=== PATIENT | female | born 1995 | race Caucasian/White ===

== ENCOUNTER → 2022-10-16 09:00 | Outpatient (BNVA) | payer MEDICAID, SELFPAY | PROVIDERS: Visit Provider Obstetrics & Gynecology | DX: Z00.00 Encounter for general adult medical examination without abnormal findings (principal); Z34.90 Encounter for supervision of normal pregnancy, unspecified, unspecified trimester | CPT/HCPCS: 81025; 84315; 87077; 87086; 87184 ==

== ENCOUNTER → 2022-10-30 15:20 | Outpatient (BNVA) | payer MEDICAID, SELFPAY | PROVIDERS: Visit Provider Nurse Practitioner Women's Health | DX: Z34.90 Encounter for supervision of normal pregnancy, unspecified, unspecified trimester (principal) | CPT/HCPCS: 84315; 85025; 87086 ==

== ENCOUNTER → 2022-11-14 14:30 | Outpatient (BNVA) | payer MEDICAID, SELFPAY | PROVIDERS: Visit Provider Obstetrics & Gynecology | DX: Z34.90 Encounter for supervision of normal pregnancy, unspecified, unspecified trimester (principal) | CPT/HCPCS: 80307; 84315; 84443; 86762; 86803; 86850; 86900; 87081; 87086; 87340; 87806 ==

== ENCOUNTER 2022-12-05 11:18 | Inpatient (IN) | payer MEDICAID, SELFPAY ==
[2022-12-05] VITALS (44 sets, daily range): BP systolic 80–116; BP diastolic 44–75; PULSE 53–93; RESP 15–16; TEMP 36–36.2; O2SAT 91–99; BMI 32.2
[2022-12-05] MEDS: lactated ringers 1,000 ML 999 ML IV (11:58)
[2022-12-05] MEDS: ceFAZolin 2,000 MG in sodium chloride 0.9% (plus) 50 ML 100 MG IV (11:59)
[2022-12-05] MEDS: citric acid-sodium citrate 30 mL UDC PO (12:00)
[2022-12-05] MEDS: famotidine 20 mg/2 mL INJ IVP (12:00)
[2022-12-05] MEDS: metoclopramide 5 mg/mL SDV 2 mL 10 MG IVP (12:00)
--- NOTE | 2022-12-05 12:25 | W.PM.OPSUD ---
Surgery/Procedure H&P Update DATE OF PROCEDURE: December 05, 2022 DATE H&P PERFORMED: 11/14/22 H&P UPDATE INFORMATION: I have reviewed H&P completed within last 30 days, I have examined patient prior to procedure and No changes to prior documentation PRIMARY INDICATION FOR PROCEDURE: previous , desires repeat iup @ 39 weeks, 2 days PLANNED PROCEDURE: Operation Date: 12/05/22 12:00 Proposed Procedures p Repeat section 19256,O34.219(Not Applicable) - Jovana Pretty MD Related Problem List Diagnoses (1) GBS (group B Streptococcus carrier), +RV culture, currently : (2) History of delivery: (3) Supervision of normal , antepartum: (4) Insufficient care:
[2022-12-05 12:32] LABS: Basophils % 0.2 %; Eosinophils # 0.1 10^3/uL (0.0-0.8); Eosinophils % 0.4 %; Hematocrit 34.5 % (37.0-47.0); Hemoglobin 11.2 g/dL (11.5-15.3); Lymphocytes # 2.3 10^3/uL (0.8-4.8); Lymphocytes % 16.5 %; Mean Corpuscular HGB Conc 32.5 g/dL (30.0-36.0); Mean Corpuscular Hemoglobin 30.1 pg (28.0-34.0); Mean Corpuscular Volume 92.7 fl (81-99); Mean Platelet Volume 10.4 fL (7.4-10.4); Monocytes # 0.8 10^3/uL (0.2-0.9); Monocytes % 5.8 %; Neutrophils # 10.72 10^3/uL (1.8-7.7); Nucleated Red Blood Cells % 0 %; Platelet Count 338 10^3/cmm (130-400); Red Blood Count 3.72 10^6/uL (4.1-5.3); Red Cell Distribution Width 12.7 % (12.1-15.1); White Blood Count 14.1 10^3/uL (4.0-10.0)
--- NOTE | 2022-12-05 13:54 | PM.OP ---
Operative Report Date of procedure: December 05, 2022 Pre-op diagnosis: previous , desires repeat Post-op diagnosis: same-delivered Post-op findings: normal appearing uterus, tubes and ovaries Procedure done: repeat Specimens removed/disposition: none Surgeon: Jovana Pretty Anesthesia: Other (spinal) Estimated blood loss (mL): 150 IV fluids (mL): 800 Urine output (mL): 250 Procedure: The patient was taken to the operating room where spinal anesthesia was administered and found to be adequate. She was prepped and draped in the normal sterile fashion in the dorsal supine position with a leftward tilt. A Pfannenstiel skin incision was made and carried down to the underlying layer of fascia. The fascia was nicked in the midline and extended laterally with the Mai scissors. The fascia was then tented up and the rectus muscles dissected off sharply. The rectus muscles were and the peritoneum entered bluntly with the digit. The peritoneal incision was extended superiorly and inferiorly with good visualization of the bladder. The Arian O retractor was placed. It was clear of any bowel or omentum. The bladder flap was created sharply with the Metzenbaum scissors. A low transverse uterine incision was made and carried down to the bag of water. The bag of water was ruptured and the uterine incision extended cephalocaudad. The breech was grasped and brought through the incision, followed by the body. The body was rotated to the right and then left, to deliver the shoulders, the head followed. The nose and mouth were bulb suctioned. The baby was allowed to rest, while being dried, for 1 minute and then the cord was clamped and cut. The baby was handed to the waiting bowling alley operator. The placenta was delivered by expression. The uterus was exteriorized and cleared of all clots and debris. The uterine incision was closed with 0 Vicryl in a running fashion. A second imbricating layer of 3-0 Monocryl was used to close the uterus. The bladder flap was closed with 3-0 Monocryl. There was excellent hemostasis. The Arian O retractor was removed. The uterus was returned to the abdomen. The peritoneum was closed with 3-0 Monocryl, incorporating the rectus muscle. The fascia was closed with 0 Vicryl in 2 separate sutures overlapping in the midline. The skin was closed with absorbable beckie. Apgars on baby 8 at 1 minute and 8 at 5 minutes. weight 6 pounds 11 ounces. Mother and baby were stable post delivery.
[2022-12-05] MEDS: oxytocin 30 UNIT/500 ML BAG 60 UNIT IV (17:11)
[2022-12-05] MEDS: miSOPROStol 200 mcg Tablet 800 MCG PR (17:12)
[2022-12-05] MEDS: docusate sodium 100 mg Capsule PO (20:36)
[2022-12-05] MEDS: ketorolac 30 mg/mL INJ IVP (20:36)
[2022-12-06] VITALS (41 sets, daily range): BP systolic 90–111; BP diastolic 48–71; PULSE 59–100; RESP 16–24; TEMP 36.2–37.4; O2SAT 97–100
[2022-12-06] MEDS: sodium chloride 0.9% 500 ML 999 ML IV (00:31)
[2022-12-06 02:44] LABS: Hematocrit 21.3 % (37.0-47.0); Hemoglobin 6.8 g/dL (11.5-15.3); Mean Corpuscular HGB Conc 31.9 g/dL (30.0-36.0); Mean Corpuscular Hemoglobin 30.5 pg (28.0-34.0); Mean Corpuscular Volume 95.5 fl (81-99); Mean Platelet Volume 10.3 fL (7.4-10.4); Platelet Count 229 10^3/cmm (130-400); Red Blood Count 2.23 10^6/uL (4.1-5.3); Red Cell Distribution Width 12.9 % (12.1-15.1); White Blood Count 14.8 10^3/uL (4.0-10.0)
[2022-12-06] MEDS: lactated ringers 1,000 ML 999 ML IV (04:16)
--- NOTE | 2022-12-06 06:15 | PM.OBGYPN ---
IT OPERATIONS ANALYST Subjective Subjective: Interval history: S/p repeat section, patient denies headaches blurred vision or abdominal pain. She is tolerating fluids and regular diet. Report from nursing staff? hemorrhage of approximately 1400 mils. Was treated with TXA as well as Pitocin IV. Currently waiting on 2 units packed red blood cell transfusion. Labor: Amniotic Membrane Status: Intact Monitor Mode: External Contraction Pattern: Rare Status: Category I Vitals/I&O/Wt Last Vital Signs Temp 97.5 F L 12/06/22 03:08 Pulse 73 12/06/22 05:44 Resp 16 12/05/22 14:25 BP 94/55 12/06/22 05:44 Pulse Ox 99 12/05/22 15:53 O2 Del Method 12/05/22 14:25 12/05/22 12/05/22 12/06/22 14:59 22:59 06:59 Intake Total 800 / 800 500 / 1300 Output Total 650 / 650 250 / 900 235 / 1135 Balance 150 / 150 -250 / -100 265 / 165 Weight last 48 hrs Weight 74.843 kg Physical Exam Back/Pelvis: OTHER: Abdomen?soft, fundus firm Extremity: COMMON NORMALS: no calf tenderness and no pedal edema Urinary Catheter Management: [place]: Cath Placed During This Visit: yes Reason for Continuing Indwelling Catheter: Acute Urinary Retention or Obstruction Urinary Catheter Date of Insertion: 12/05/22 Urinary Catheter Time of Insertion: 12:50 Data 12/06/22 02:30 A&P Assessment and plan (1) Insufficient care: (2) History of delivery: Plan A. 1. S/p repeat 2. hemorrhage (hemoglobin 6.8)-asymptomatic P. Transfused 2 units packed red blood cells then repeat CBC. Attestations Medical Necessity Statement*: care after repeat Coding Level of Care Code Acute Code for Chg Fwd Diagnoses Insufficient care O09.30 History of delivery Z98.891
[2022-12-06] MEDS: lactated ringers 1,000 ML 125 ML IV (07:24)
[2022-12-06] MEDS: sodium chloride 0.9% 100 mL Bag 50 ML IV (08:28)
[2022-12-06] MEDS: ferrous sulfate EC 325 mg Tablet PO (11:41)
[2022-12-06] MEDS: prenatal vitamin Capsule 1 CAP PO (11:41)
[2022-12-06] MEDS: docusate sodium 100 mg Capsule PO (11:41)
[2022-12-06 18:27] LABS: Basophils % 0.2 %; Eosinophils # 0.1 10^3/uL (0.0-0.8); Eosinophils % 0.5 %; Hematocrit 24.9 % (37.0-47.0); Hemoglobin 8.2 g/dL (11.5-15.3); Lymphocytes # 1.3 10^3/uL (0.8-4.8); Lymphocytes % 6.8 %; Mean Corpuscular HGB Conc 32.9 g/dL (30.0-36.0); Mean Corpuscular Hemoglobin 29.7 pg (28.0-34.0); Mean Corpuscular Volume 90.2 fl (81-99); Monocytes # 1.3 10^3/uL (0.2-0.9); Monocytes % 6.8 %; Neutrophils # 15.46 10^3/uL (1.8-7.7); Neutrophils % 84.6 %; Nucleated Red Blood Cells % 0 %; Platelet Count 193 10^3/cmm (130-400); Red Blood Count 2.76 10^6/uL (4.1-5.3); Red Cell Distribution Width 14.9 % (12.1-15.1); White Blood Count 18.3 10^3/uL (4.0-10.0)
--- NOTE | 2022-12-06 20:27 | PM.OBGYPN ---
MANUFACTURING SALES REPRESENTATIVE Subjective Subjective: Interval history: Pt doing well, no complaints. s/P 2U PRBC transfusion for PPH. Pt denies dizziness,SOB, CP or HAs. Hgb 8.2. Labor: Amniotic Membrane Status: Intact Monitor Mode: External Contraction Pattern: Rare Status: Category I Vitals/I&O/Wt Last Vital Signs Temp 98.4 F 12/06/22 16:10 Pulse 100 12/06/22 16:10 Resp 24 H 12/06/22 16:10 BP 111/71 12/06/22 16:10 Pulse Ox 97 12/06/22 16:10 O2 Del Method 12/06/22 16:10 12/06/22 12/06/22 12/06/22 06:59 14:59 22:59 Intake Total 610 / 1410 500 / 500 500 / 1000 Output Total 535 / 1435 1000 / 1000 800 / 1800 Balance 75 / -25 -500 / -500 -300 / -800 Weight last 48 hrs Weight 74.843 kg Physical Exam Urinary Catheter Management: [place]: Cath Placed During This Visit: yes, but has since been removed by the nurse Reason for Continuing Indwelling Catheter: Accurate Measurement of Urinary Output in Critically Ill Patients Urinary Catheter Date of Insertion: 12/05/22 Urinary Catheter Time of Insertion: 12:50 Date Urinary Catheter Removed: 12/06/22 Time Urinary Catheter Discontinued: 01:45 Latex Free: Cath Placed During This Visit: yes Reason for Continuing Indwelling Catheter: Acute Urinary Retention or Obstruction Urinary Catheter Date of Insertion: 12/06/22 Urinary Catheter Time of Insertion: 02:00 Data 12/06/22 17:45 A&P Assessment and plan (1) Supervision of normal , antepartum: Plan S/P Repeat C/S and Tubal Sterilization PPH S/P transfusion 2U PRBCs Asymptomatic Anemia P. Probable DC tomorrow. Attestations Medical Necessity Statement*: S/P repeat C/S and Tubal Coding Level of Care Code Acute Code for Chg Fwd Diagnoses Supervision of normal , antepartum Z34.90
[2022-12-07 03:30] VITALS: BP 97/63; PULSE 73; RESP 18; TEMP 36.7; O2SAT 97
[2022-12-07] MEDS: prenatal vitamin Capsule 1 CAP PO (09:13)
[2022-12-07] MEDS: ferrous sulfate EC 325 mg Tablet PO (09:13)
[2022-12-07] MEDS: ibuprofen 800 mg tablet PO ×2 (09:13→15:13)
[2022-12-07] MEDS: docusate sodium 100 mg Capsule PO (09:13)
[2022-12-07 10:26] VITALS: BP 100/63; PULSE 77; RESP 20; TEMP 36.7; O2SAT 97
--- NOTE | 2022-12-07 12:15 | PM.OBGYDC ---
Discharge Providers CARTON STENCILER Date of Admission: 12/05/22 11:18 Date of Discharge: 12/07/22 Attending Provider at Admission: Jovana Pretty MD Attending Provider at Discharge: Jovana Pretty MD Primary CARTON STENCILER: Jovana Pretty Diagnoses at Discharge Discharge Diagnosis (1) Supervision of normal , antepartum: Details from hospital stay: 27-year-old female s/p repeat with hemorrhage treated with Pitocin, TXA and 2 units packed red blood cells. Patient's post op hemoglobin of 6.8 has resolved to 8.2. Patient denies headaches, blurred vision, chest pain, shortness of breath. She ambulates without assistance and without complaints. She states her bleeding is light with no passage of clots. Discharge to home expectations has been reviewed in great detail to include no heavy lifting, pushing or pulling. Patient is to shower daily keeping incision clean and dry. If heavy vaginal bleeding occurs to where patient thinks it is excessive she is to come to the emergency room for evaluation. She is to continue her vitamins and iron which she has at home. She is to call the clinic and schedule a 2-week follow-up appointment for postop evaluation. Status: Acute Reason for Visit Reason for Visit: induction Hospital Course Hospital Course See above details from hospital stay Information Peripartum Data: Delivery Method: Additional Peripartum Information: hemorrhage with treatment of Pitocin, TXA, transfusion of 2 units packed red blood cells. Physical Exam Back/Pelvis: OTHER: Abdomen?soft, fundus firm. Fundus is to the right of the umbilicus, nontender. Incision intact clean and dry. Lochia?light Extremity: COMMON NORMALS: normal to inspection, no calf tenderness and no pedal edema Urinary Catheter Management: [place]: Cath Placed During This Visit: yes, but has since been removed by the nurse Reason for Continuing Indwelling Catheter: Accurate Measurement of Urinary Output in Critically Ill Patients Urinary Catheter Date of Insertion: 12/05/22 Urinary Catheter Time of Insertion: 12:50 Date Urinary Catheter Removed: 12/06/22 Time Urinary Catheter Discontinued: 01:45 Latex Free: Cath Placed During This Visit: yes, but has since been removed by the nurse Reason for Continuing Indwelling Catheter: Decision to DC Catheter Urinary Catheter Date of Insertion: 12/06/22 Urinary Catheter Time of Insertion: 02:00 Date Urinary Catheter Removed: 12/06/22 Time Urinary Catheter Discontinued: 21:00 History History History 4 Term 2 0 Miscarriages/Ectopic 1 Living Children 2 Discharge Data Studies Completed and Pending Laboratory Results WBC 18.3 10^3/uL (4.0-10.0) H 12/06/22 17:45 RBC 2.76 10^6/uL (4.1-5.3) L 12/06/22 17:45 Hgb 8.2 g/dL (11.5-15.3) L 12/06/22 17:45 Hct 24.9 % (37.0-47.0) L 12/06/22 17:45 MCV 90.2 fl (81-99) D 12/06/22 17:45 MCH 29.7 pg (28.0-34.0) 12/06/22 17:45 MCHC 32.9 g/dL (30.0-36.0) 12/06/22 17:45 RDW 14.9 % (12.1-15.1) 12/06/22 17:45 Plt Count 193 10^3/cmm (130-400) 12/06/22 17:45 MPV 10.0 fL (7.4-10.4) 12/06/22 17:45 Neut % (Auto) 84.6 % 12/06/22 17:45 Lymph % (Auto) 6.8 % 12/06/22 17:45 [place] % (Auto) 6.8 % 12/06/22 17:45 Eos % (Auto) 0.5 % 12/06/22 17:45 Baso % (Auto) 0.2 % 12/06/22 17:45 Neut # (Auto) 15.46 10^3/uL (1.8-7.7) H 12/06/22 17:45 Lymph # (Auto) 1.3 10^3/uL (0.8-4.8) 12/06/22 17:45 [place] # (Auto) 1.3 10^3/uL (0.2-0.9) H 12/06/22 17:45 Eos # (Auto) 0.1 10^3/uL (0.0-0.8) 12/06/22 17:45 Baso # (Auto) 0.0 10^3/uL (0.0-0.1) 12/06/22 17:45 Nucleated RBC % (auto) 0 % 12/06/22 17:45 Nucleated RBCs # 0.0 /100WBC 12/06/22 17:45 Blood Type A Positive 12/05/22 11:30 Rho(D) Type Positive 12/05/22 11:30 Antibody Screen Negative 12/05/22 11:30 Crossmatch See Detail 12/05/22 11:30 Procedures Performed Repeat Transfusion with 2 units packed red blood cells Vitals Last Vital Signs Temp 98.1 F 12/07/22 10:26 Pulse 77 12/07/22 10:26 Resp 20 H 12/07/22 10:26 BP 100/63 12/07/22 10:26 Pulse Ox 97 12/07/22 10:26 O2 Del Method 12/07/22 10:26 Discharge Plan Discharge Patient Disposition: Home Condition: Stable Prescriptions: Continued prenat.vits,joanne,[id number] Tablet 1 tab PO DAILY (DME) breast pump Device See Rx Instructions .Route Qty: 1 0RF Rx Instructions: As directed Discharge Orders: Discharge Order (Routine); Ordered 12/07/22 Ordered By: Eufemia Stevens Referrals: Jovana Pretty MD [Physician] - 12/12/22 2:15 pm (1 week post-: 12/12/22 @2:15 6 week post-: 01/15/23 @10:00) Patient Instructions: Depression (DC), Bleeding (DC), Preeclampsia and Eclampsia After Delivery (GEN), OB C, OB Discharge Report, OB Anesthesia Instructions, OB Food/Drug Interaction Guide, Opioid Safety, OB Home Care Assessment: 1. S/p repeat 2. S/p hemorrhage 3. Asymptomatic anemia from acute blood loss 4. S/p transfusion with 2 units packed red blood cells Plan of Treatment: 1. Discharged home today 2. Follow-up in [address] visit [address] Dr[address] Pretty. Discharge Attestations CARTON STENCILER Time Spent in Discharge Care*: less than 30 min Coding Level of Care Code Acute Code for Chg Fwd Diagnoses Supervision of normal , antepartum Z34.90
[2022-12-07 20:00] VITALS: BP 114/74; PULSE 86; RESP 15; TEMP 36.6; O2SAT 97
== END 2022-12-07 20:43 | disposition home or self-care (01) | DRG 787 ==
PROVIDERS: Admitting Provider Obstetrics & Gynecology; Visit Provider Obstetrics & Gynecology
PROC: 10D00Z1 Extraction of Products of Conception, Low, Open Approach (ICD-10-PCS; CPT 59514; principal; 2022-12-05 12:00)
DX: O34.219 Maternal care for unspecified type scar from previous cesarean delivery (principal); D62 Acute posthemorrhagic anemia; O72.1 Other immediate postpartum hemorrhage; O90.81 Anemia of the puerperium; O99.824 Streptococcus B carrier state complicating childbirth; Z37.0 Single live birth; Z3A.39 39 weeks gestation of pregnancy
CPT/HCPCS: 12345; 36415; 36430; 51702; 59025; 59409; 85025; 85027; 86850; 86900; 86920; 96374; J0690; J1885; J2274; J2405; J2590; J2765; J3490; J7040; J7120; P9040

== ENCOUNTER 2024-03-19 07:00 | Emergency (ER) | payer MEDICAID, SELFPAY ==
[2024-03-19 07:09] VITALS: BP 107/77; PULSE 76; RESP 18; TEMP 36.4; O2SAT 98
--- NOTE | 2024-03-19 07:11 | ED_ITS ---
HPI - Eye Problem General: Chief complaint: Eye Problems Stated complaint: Eye swelling Time Seen by Provider: 03/19/24 07:02 Source: patient Mode of arrival: ambulatory Limitations: no limitations History of Present Illness: 48-year-old female who states she had no some swelling to her left eye started last night. She denies any pain denies any change in vision. She denies any injuries. Associated symptoms: Denies fever(s), headache(s), nausea, neck pain or vomiting Review of Systems Const: Denies: fever(s), chills, body aches or change in appetite Eyes: Denies: blurry vision or eye discomfort ENMT: Denies: throat pain or dental pain Card: Denies: chest pain Resp: Denies: dyspnea GI: Denies: abdominal pain, nausea, vomiting or diarrhea Musc: Denies: neck pain or back pain Skin/Breast: Denies: rash Neuro: Denies: headache(s) PFSH ED PFSH: Medical History Generalized anxiety disorder Major depressive disorder, recurrent severe without psychotic features Psychiatric care Insufficient care GBS (group B Streptococcus carrier), +RV culture, currently Supervision of normal , antepartum Surgical History History of x2 History of cholecystectomy Family History Denies family history of Colon cancer Ovarian cancer Diabetes Heart disease Hypercholesteremia Breast cancer Hypertension Uterine cancer Thyroid disease Stroke Physical Exam Const: COMMON NORMALS: no acute distress, patient oriented x3 and healthy appearing HENMT: COMMON NORMALS: normocephalic and atraumatic HEAD & SCALP: normocephalic and atraumatic Eye: OTHER: Chemosis noted to sclera of the left eye no erythema no drainage Neck/C-Spine: COMMON NORMALS: full ROM and supple Chest: COMMONS NORMALS: normal inspection of the chest Resp: COMMON NORMALS: normal respiratory effort Extremity: COMMON NORMALS: normal to inspection and full ROM Neuro: COMMON NORMALS: patient oriented x3, moves all extremities and no focal motor deficits Psych: COMMON NORMALS: mental status grossly normal, Normal thought process present and cooperative THOUGHT PROCESS: Normal thought process present Skin: COMMON NORMALS: no rashes or lesions noted and no wounds GENERAL SKIN EXAM: no rashes or lesions noted MDM - Eye Problem Medical Decision Making Patient presents here with chemosis noted to the sclera of left eye eye exam here is benign no abrasions no ulcer she is to do [id number] antihistamine eyedrops and cool compresses Medical Records I reviewed the patient's medical records. No radiology studies performed this visit Discharge Plan Discharge Patient Disposition: Home Clinical Impression: Chemosis of conjunctiva Qualifiers: Laterality: left Qualified Code(s): H11.422 - Conjunctival edema, left eye Condition: Stable Prescriptions: No Action fluoxetine [Prozac] 20 mg capsule 20 mg PO DAILY Qty: 30 0RF fluoxetine [Prozac] 40 mg capsule 40 mg PO DAILY Qty: 30 2RF Rx Instructions: Start after 1 month on 20 mg. trazodone 50 mg tablet 100 mg PO .HS PRN (Reason: insomnia) Qty: 60 2RF Discharge Orders: Discharge ED (Routine); Ordered 03/19/24 Ordered By: Christel Maldonado Discharge Diet: Advance as tolerated Discharge Activity: Resume usual activity Activity Restrictions/Additional Instructions: Exam here is consistent with chemosis of the left eye and swelling of the eye or surface membranes because of accumulation of fluid. Soft and related to an allergic response you use [id number] antihistamine eyedrops and cool cloth cold compress placed over the eye follow-up with your PCP return if worsening Coding Level of Care Code ED Behavioral Services Tech for Elli Perez
[2024-03-19] MEDS: tetracaine 0.5% Op Soln 4 mL Btl 1 DROP EYE-LEFT (07:13)
[2024-03-19] MEDS: fluorescein 1 mg Strip EYE-LEFT (07:13)
[2024-03-19 07:15] VITALS: BP 107/77; PULSE 75; RESP 16; O2SAT 97
[2024-03-19 07:24] VITALS: BP 107/77; PULSE 68; O2SAT 94
== END 2024-03-19 07:26 | disposition home or self-care (01) ==
PROVIDERS: Emergency Provider Emergency Medicine
DX: H11.422 Conjunctival edema, left eye (principal)
CPT/HCPCS: 99283

== ENCOUNTER 2025-05-07 09:12 | Emergency (ER) | payer MEDICAID, SELFPAY ==
[2025-05-07 09:17] VITALS: BP 113/70; PULSE 79; RESP 14; TEMP 36.6; O2SAT 97; BMI 27.9
--- NOTE | 2025-05-07 09:21 | W.ED.UPPEXIN ---
HPI - Extremity Injury (Upper) General: Chief Complaint: Allergic Reaction Stated Complaint: hives(2xweeks) Time Seen by Provider: 05/07/25 09:13 Source: patient Mode of arrival: ambulatory Limitations: no limitations History of Present Illness: 29-year-old female who states that she has been having urticaria off and on for the last 2 weeks. States is to her trunk and legs and has been very pruritic. She denies any breathing issues. States she has not come to contact anything that she knows she is allergic to. Associated symptoms: Denies neck pain Related Data Previous Rx's ?Medication ?Instructions ?Recorded bupropion HCl 150 mg 24 hr tablet, 150 mg PO QAM #30 tabs 11/25/24 extended release (Wellbutrin XL) trazodone 50 mg tablet 100 mg (2 x 50 mg) PO .HS PRN 11/25/24 insomnia #60 tabs prednisone 50 mg tablet 50 mg PO DAILY #5 tabs 05/07/25 Allergies Allergy/AdvReac Type Severity Reaction Status Date / Time No Known Allergies Allergy Verified 11/25/24 10:45 Review of Systems Const: Denies: fever(s), chills, body aches or change in appetite Eyes: Denies: blurry vision or eye discomfort Card: Denies: chest pain Resp: Denies: dyspnea GI: Denies: abdominal pain, nausea, vomiting or diarrhea Musc: Denies: neck pain or back pain Skin/Breast: Reports: rash Neuro: Denies: headache(s) PFSH ED PFSH: Medical History Generalized anxiety disorder Psychiatric care Insufficient care GBS (group B Streptococcus carrier), +RV culture, currently Supervision of normal , antepartum Surgical History History of x2 History of cholecystectomy Family History Denies family history of Colon cancer Ovarian cancer Diabetes Heart disease Hypercholesteremia Breast cancer Hypertension Uterine cancer Thyroid disease Stroke Physical Exam Const: COMMON NORMALS: no acute distress, patient oriented x3 and healthy appearing HENMT: COMMON NORMALS: normocephalic and atraumatic HEAD & SCALP: normocephalic and atraumatic Eye: COMMON NORMALS: conjunctivae normal CONJUNCTIVA: Yes conjunctivae normal Neck/C-Spine: COMMON NORMALS: full ROM and supple Chest: COMMONS NORMALS: normal inspection of the chest Resp: COMMON NORMALS: normal respiratory effort, No retractions, No use of accessory muscles and clear to auscultation bilaterally AUSCULTATION: clear to auscultation bilaterally Cardio: COMMON NORMALS: regular rate RATE: regular rate Neuro: COMMON NORMALS: patient oriented x3, moves all extremities and no focal motor deficits Psych: COMMON NORMALS: mental status grossly normal, Normal thought process present and cooperative THOUGHT PROCESS: Normal thought process present Skin: COMMON NORMALS: no wounds NARRATIVE SKIN EXAM: Urticaria noted to trunk and legs Course Vital Signs: Vital signs: Vital Signs Temperature 97.9 F 05/07/25 09:17 Pulse Rate 79 05/07/25 09:17 Respiratory Rate 14 05/07/25 09:17 Blood Pressure 113/70 05/07/25 09:17 Pulse Oximetry 97 05/07/25 09:17 MDM - Extremity Injury (Upper) Medical Decision Making Patient presents with urticaria she is well-appearing here we will place her on prednisone she is follow-up PCP return if worsening. Medical Records I reviewed the patient's medical records. No radiology studies performed this visit Discharge Plan Discharge Patient Disposition: Home Clinical Impression: Urticaria Condition: Stable Prescriptions: New prednisone 50 mg tablet 50 mg PO DAILY Qty: 5 0RF No Action bupropion HCl [Wellbutrin XL] 150 mg tablet extended release 24 hr 150 mg PO QAM Qty: 30 2RF trazodone 50 mg tablet 100 mg PO .HS PRN (Reason: insomnia) Qty: 60 2RF Discharge Orders: Discharge ED (Routine); Ordered 05/07/25 Ordered By: Christel Maldonado Discharge Diet: Advance as tolerated Discharge Activity: Resume usual activity Patient Instructions: Urticaria (ED) Print Language: Sami Coding Level of Care Code ED Documentation Billing Clerk for Elli Perez
[2025-05-07 10:13] VITALS: BP 110/70; PULSE 80; RESP 17; O2SAT 99
== END 2025-05-07 10:00 | disposition home or self-care (01) ==
PROVIDERS: Emergency Provider Emergency Medicine; PCP Family Medicine
DX: L50.9 Urticaria, unspecified (principal)
CPT/HCPCS: 96372; 99284; J1100; J7512; J9999

== ENCOUNTER → 2025-08-08 09:41 | Outpatient (BNVA) | payer MEDICAID, SELFPAY | PROVIDERS: PCP Family Medicine; Visit Provider Registered Nurse Neonatal Intensive Care | DX: J02.9 Acute pharyngitis, unspecified (principal) | CPT/HCPCS: 87880 ==

== ENCOUNTER 2025-10-21 19:09 | Emergency (ER) | payer MEDICAID, SELFPAY ==
[2025-10-21 19:15] VITALS: BP 119/82; PULSE 80; RESP 14; TEMP 36.8; O2SAT 99; BMI 3655.6
[2025-10-21 19:36] LABS: Hematocrit 37.7 % (36-47); Hemoglobin 12.30 g/dL (11.27-16.99); Mean Corpuscular HGB Conc 32.6 g/dL (30-55); Mean Corpuscular Hemoglobin 30.3 pg (27-33); Mean Corpuscular Volume 92.9 fl (85-98); Nucleated Red Blood Cells % 0 %; Platelet Count 274 10^3/cmm (157-399); Red Blood Count 4.06 10^6/uL (3.85-5.65); White Blood Count 6.41 10^3/uL (3.29-11.43)
[2025-10-21 19:40] LABS: Glucose Urine UA Negative (Normal); Nitrate Urine Negative (Negative); Specific Gravity, Urine 1.020 (1.005-1.030)
[2025-10-21 19:43] LABS: Add Urine Microscopic? YES
[2025-10-21 20:29] LABS: Alanine Aminotransferase 16 U/L (0-33); Albumin Level 4.6 g/dL (3.5-5.2); Anion Gap 17.7 (5-19); Aspartate Amino Transferase 23 U/L (0-32); Blood Urea Nitrogen 13 mg/dL (6-20); Calcium 9.1 mg/dL (8.5-10.5); Carbon Dioxide 23 mmol/L (22-29); Chloride 100 mmol/L (98-107); Globulin 3.3 g/dL (1.3-4.6); Glucose 99 mg/dL (65-115); Osmolality Calculated 284 mOsm/kg (285-295); Potassium 3.7 mmol/L (3.5-5.1); Sodium 137 mmol/L (136-145); Total Protein 7.9 g/dL (6.6-8.7)
[2025-10-21 20:51] LABS: Alkaline Phosphatase 110 U/L (35-105)
--- NOTE | 2025-10-21 21:29 | ED_ITS ---
Documented by User: [email or web address] Harris 10/21/25 23:02 HPI - Back Pain/Injury 2 General: Chief Complaint: Back Pain/Injury Stated Complaint: RT lower back hurting,said might be kidney Time Seen by Provider: 10/21/25 21:29 Source: patient Mode of arrival: ambulatory Limitations: no limitations History of Present Illness: Mild pain patient is a 30-year-old female with no pertinent past medical history reporting the emergency department complaining of right low back pain that began about an hour prehospital. She states that she was getting ready to get to the shower when the pain started, and got so intense that it took her to her knees. States that the pain is worse with deep breathing and has been constant but overall has improved since it came on. She noted earlier it would intermittently get worse with sharp/stabbing sensations but now is more of a dull ache. She currently states that she is on her menstrual cycle but has not recently had any hematuria. She also is not indicating that she is having any dysuria. No fevers or chills, no nausea/vomiting. Overall condition has improved, she denies need for pain medication at this time. Vitals are stable. She is not clinically ill-appearing. MD elicited complaint: back pain Onset (ago): hour(s) Timing: constant and improved Quality: sharp, dull and stabbing Location: right lower back Associated symptoms: Deny abdominal pain, chills, dysuria, fever(s), nausea, urinary urgency or vomiting Related Data Previous Rx's ?Medication ?Instructions ?Recorded amoxicillin 875 mg tablet 875 mg PO BID 10 days #20 ta bs 08/08/25 Allergies Allergy/AdvReac Type Severity Reaction Status Date / Time No Known Allergies Allergy Verified 10/21/25 19:17 Review of Systems 2 General: Reports: 10 or more systems reviewed and unremarkable except in HPI and below Const: Denies: fever(s), chills, change in appetite, change in weight or diaphoresis ENMT: Denies: throat pain or hoarseness Card: Denies: chest pain, palpitations or lightheadedness Resp: Denies: dyspnea, productive cough or wheezing GI: Denies: abdominal pain, nausea, vomiting, diarrhea, constipation, bloating, change in stool character or hematochezia : Denies: flank pain, difficulty voiding, dysuria, urinary frequency or urinary urgency Musc: Reports: back pain; Denies: neck pain Skin/Breast: Denies: rash or new lesions Neuro: Denies: headache(s) or dizziness PFSH ED 2 PFSH: Medical History Generalized anxiety disorder Psychiatric care Insufficient care GBS (group B Streptococcus carrier), +RV culture, currently Supervision of normal , antepartum Surgical History History of x2 History of cholecystectomy Family History Denies family history of Colon cancer Ovarian cancer Diabetes Heart disease Hypercholesteremia Breast cancer Hypertension Uterine cancer Thyroid disease Stroke Social History Smoking and tobacco/nicotine status: never used tobacco/nicotine Physical Exam 2 Const: COMMON NORMALS: no acute distress, average body habitus, patient oriented x3, no limitations, healthy appearing, alert and well nourished G ENERAL APPEARANCE: cooperative and comfortable ORIENTATION/CONSCIOUSNESS: Yes awake OTHER: Nontoxic Neck/C-Spine: COMMON NORMALS: full ROM, supple and no meningeal signs Resp: COMMON NORMALS: normal respiratory effort, No retractions, No use of accessory muscles and clear to auscultation bilaterally AUSCULTATION: clear to auscultation bilaterally, no crackles, no rales, no rhonchi and no wheezes Cardio: COMMON NORMALS: regular rate, regular rhythm, No gallops present (Cardio), No clicks present (Cardio), No murmurs present (Cardio) and No rub (Cardio) RATE: regular rate RHYTHM: regular rhythm GI: COMMON NORMALS: Normal to inspection, nondistended, normoactive bowel sounds present, Soft to palpation, non-tender and no masses AUSCULTATION: Yes normoactive bowel sounds PALPATION: Yes Soft to palpation and No Guarding due to palpation present (GI) Back/Pelvis: OTHER: Easy reproducible tenderness palpation to the right parathoracic muscles, no flank bruising Extremity: COMMON NORMALS: normal to inspection and full ROM Neuro: COMMON NORMALS: patient oriented x3, moves all extremities, no focal motor deficits and no sensory deficits noted SENSORIUM/ORIENTATION: Yes alert MENINGEAL SIGNS: Yes no meningeal signs Psych: COMMON NORMALS: mental status grossly normal, cooperative and speech normal SPEECH: Yes normal speech Skin: COMMON NORMALS: no rashes or lesions noted GENERAL SKIN EXAM: no rashes or lesions noted Course 2 Vital Signs: Vital signs: Vital Signs Temperature 98.2 F 10/21/25 19:15 Pulse Rate 91 10/21/25 22:01 Respiratory Rate 14 10/21/25 19:15 Blood Pressure 99/73 10/21/25 22:01 Pulse Oximetry 99 10/21/25 22:01 Oxygen Delivery Me thod Room Air 10/21/25 22:01 MDM - Back Pain/Injury Medical Decision Making Patient presented for evaluation of sudden onset right low back pain, she had endorsed concern that this was kidney related. However she denied to me any history of kidney pathology such as pyelonephritis or kidney stones. She is currently on her menstrual cycle, this is why her urinalysis has blood in it but there are no infectious markers. On exam she has tenderness to palpation to the right parathoracic muscles but this is easily reproducible to palpation, making it less likely that this is truly CVA/kidney related pain. She is also nontoxic-appearing, no symptoms of fevers or chills at home, no dysuria or frequency/hesitancy with urination, and no nausea or vomiting. She did not report any recent trauma. Her lab work is all unremarkable, and her CT abdomen and pelvis showing no acute findings. Due to the reproducibility of this pain and lack of lab or imaging findings this patient is likely dealing with musculoskeletal back pain. Other potential etiology would be possible shingles preceding her rash however this is very unlikely given the patient's age. She is told to follow-up with her primary care provider for reevaluation in a few days if she continues to have pain, and to return the emergency department with any onset of other new concerning symptoms. Patient endorses understanding and agrees to this plan at this time. Symptoms have been stable throughout ED course. Labs 10/21/25 19:30 10/21/25 19:30 Radiology Impressions Abdomen/Pelvis CT 10/21/25 21:55 IMPRESSION: 1. Circumferential bladder wall thickening, which can be due to underdistention, however cystitis may have similar appearance. 2. Status post cholecystectomy. 3. No hydronephrosis or obstructing calculi bilaterally. Laboratory Results WBC 6.41 10^3/uL (3.29-11.43) 10/21/25 19: RBC 4.06 10^6/uL (3.85-5.65) 10/21/25 19: Hgb 12.30 g/dL (11.27-16.99) 10/21/25 19: Hct 37.7 % (36-47) 10/21/25 19: MCV 92.9 fl (85-98) 10/21/25 19: MCH 30.3 pg (27-33) 10/21/25: MCHC 32.6 g/dL (30-55) 10/21/25 19: RDW 13.0 % (12.1-15.1) 10/21/25 19: Plt Count 274 10^3/cmm (157-399) 10/21/25: MPV 9.6 fL (7.4-10.4) 10/21/25 19: Neut % (Auto) 47.4 % 10/21/25 19: Lymph % (Auto) 41.3 % 10/21/25 19: [place] % (Auto) 8.9 % 10/21/25 19: Eos % (Auto) 1.7 % 10/21/25 19: Baso % (Auto) 0.5 % 10/21/25: Neut # (Auto) 3.04 10^3/uL (1.8-7.7) 10/21/25: Lymph # (Auto) 2.7 10^3/uL (0.8-4.8) 10/21/25: [place] # (Auto) 0.6 10^3/uL (0.2-0.9) 10/21/25: Eos # (Auto) 0.1 10^3/uL (0.0-0.8) 10/21/25 19: Baso # (Auto) 0.0 10^3/uL (0.0-0.1) 10/21/25: Nucleated RBC % (auto) 0 % 10/21/25: Nucleated RBCs # 0.0 /100WBC 10/21/25 19:30 Sodium 137 mmol/L (136-145) 10/21/25 19: Potassium 3.7 mmol/L (3.5-5.1) 10/21/25 19: Chloride 100 mmol/L (98-107) 10/21/25 19: Carbon Dioxide 23 mmol/L (22-29) 10/21/25 19: Anion Gap 17.7 (5-19) 10/21/25 19: BUN 13 mg/dL (6-20) 10/21/25 19: Creatinine 0.8 mg/dL (0.5-0.9) 10/21/25 19: GFR Calculation 85.4 mL/min (90-130) L 10/21/25 19: Glucose 99 mg/dL (65-115) 10/21/25 19: Calculated Osmolality 284 mOsm/kg (285-295) L 10/21/25 19: Calcium 9.1 mg/dL (8.5-10.5) 10/21/25: Total Bilirubin 0.4 mg/dL (0.15-1.2) 10/21/25 19: AST 23 U/L (0-32) 10/21/25 19: ALT 16 U/L (0-33) 10/21/25 19: Alkaline Phosphatase 110 U/L (35-105) H 10/21/25 19: Total Protein 7.9 g/dL (6.6-8.7) 10/21/25: Albumin 4.6 g/dL (3.5-5.2) 10/21/25 19: Globulin 3.3 g/dL (1.3-4.6) 10/21/25 19: Urine Color [place] (Yellow) A 10/21/25: Urine Appearance Cloudy (CLEAR) A 10/21/25: Urine pH 5.5 (5-7) 10/21/25: Ur Specific [place] 1.020 (1.005-1.030) 10/21/25: Urine Protein Trace (Negative) A 10/21/25: Urine Glucose (UA) Negative (Normal) 10/21/25: Urine Ketones Trace (Negative) 10/21/25 19:28 Urine Blood 3+ (Negative) A 10/21/25 19:28 Urine Nitrate Negative (Negative) 10/21/25 19:28 Urine Bilirubin Negative (Negative) 10/21/25 19:28 Urine Urobilinogen 1.0 mg/dL (Negative) 10/21/25 19:28 Ur Leukocyte Esterase Trace (Negative) A 10/21/25 19:28 Urine RBC >100 /hpf (0-2) H 10/21/25 19:28 Urine WBC 0-5 /hpf (0-5) 10/21/25 19:28 Ur Squamous Epith Cells 0-5 /hpf (0-5) 10/21/25 19:28 Amorphous Sediment Not Reportable 10/21/25 19:28 Urine Bacteria None seen /hpf (NONE) 10/21/25 19:28 Hyaline Casts 0-4 /lpf H 10/21/25 19:28 All radiology interpretation(s) finalized by discharge Discharge Plan Discharge Patient Disposition: Home Clinical Impression: Musculoskeletal back pain Condition: Stable Prescriptions: No Action amoxicillin 875 mg tablet 875 mg PO BID 10 Days Qty: 20 0RF Discharge Orders: Discharge ED (Routine); Ordered 10/21/25 Ordered By: Volodymyr Ray Referrals: Barron Germain MD [Primary Care Provider, Family Practice] Patient Instructions: Patient Portal & Daniela Instructions Activity Restrictions/Additional Instructions: Discharge Instructions: Musculoskeletal Back Pain Your Diagnosis You were evaluated in the emergency department for back pain. After a thorough evaluation including CT scan and laboratory tests, we have determined that you have musculoskeletal back pain. Your kidney stone was ruled out, and all your tests were reassuring. Your vital signs have been stable throughout your visit. What to Expect The good news is that most people with musculoskeletal back pain improve significantly within the first month, regardless of treatment. You should expect gradual improvement over the coming weeks. Home Care Instructions Activity: - Stay active and continue your normal daily activities as much as you can tolerate - Avoid prolonged bed rest, as this can actually slow your recovery - Gradually increase your activity level as your pain improves Pain Management: Non-medication options (try these first): - Apply heat to your back for 20 minutes several times daily using a heating pad or warm compress - Consider massage therapy if available and affordable - Gentle stretching as tolerated Medication options: - Take [id number] anti-inflammatory medications (such as ibuprofen or naproxen) as directed on the package, unless you have been told to avoid these medications - You may take acetaminophen (Tylenol) in addition to anti-inflammatory medications if needed for additional pain relief - Take medications with food to reduce stomach upset When to Seek Immediate Medical Attention Return to the emergency department or call 911 if you develop any of the following: - New loss of bladder or bowel control - Numbness in the groin or rectal area (saddle anesthesia) - New or worsening weakness in your legs - Fever (temperature above 100.4?F or 38?C) - Severe pain that is not controlled with medication - Unexplained weight loss - Pain that spreads down both legs Follow-Up Care - Schedule an appointment with your primary care doctor within 1-2 weeks - If your pain does not improve after one month, contact your doctor for further evaluation - Keep track of your symptoms and what helps or worsens your pain Additional Information Smoking can worsen back pain and slow recovery. If you smoke, consider talking to your doctor about smoking cessation resources. Print Language: Amharic Coding Level of Care Code ED Color Shop Helper for Chg Fwd Documented by User: Say Solis DO 10/23/25 10:57 HPI - Back Pain/Injury 2 General: Chief Complaint: Back Pain/Injury Stated Complaint: RT lower back hurting,said might be kidney Time Seen by Provider: 10/21/25 21:29 Related Data Previous Rx's ?Medication ?Instructions ?Recorded amoxicillin 875 mg tablet 875 mg PO BID 10 days #20 ta bs 08/08/25 Allergies Allergy/AdvReac Type Severity Reaction Status Date / Time No Known Allergies Allergy Verified 10/21/25 19:17 PFSH ED 2 PFSH: Medical History Generalized anxiety disorder Psychiatric care Insufficient care GBS (group B Streptococcus carrier), +RV culture, currently Supervision of normal , antepartum Surgical History History of x2 History of cholecystectomy Family History Denies family history of Colon cancer Ovarian cancer Diabetes Heart disease Hypercholesteremia Breast cancer Hypertension Uterine cancer Thyroid disease Stroke Social History Smoking and tobacco/nicotine status: never used tobacco/nicotine Course 2 Vital Signs: Vital signs: Vital Signs Temperature 98.2 F 10/21/25 19:15 Pulse Rate 91 10/21/25 22:01 Respiratory Rate 14 10/21/25 19:15 Blood Pressure 99/73 10/21/25 22:01 Pulse Oximetry 99 10/21/25 22:01 Oxygen Delivery Me thod Room Air 10/21/25 22:01 MDM - Back Pain/Injury Medical Decision Making Patient presented for evaluation of sudden onset right low back pain, she had endorsed concern that this was kidney related. However she denied to me any history of kidney pathology such as pyelonephritis or kidney stones. She is currently on her menstrual cycle, this is why her urinalysis has blood in it but there are no infectious markers. On exam she has tenderness to palpation to the right parathoracic muscles but this is easily reproducible to palpation, making it less likely that this is truly CVA/kidney related pain. She is also nontoxic-appearing, no symptoms of fevers or chills at home, no dysuria or frequency/hesitancy with urination, and no nausea or vomiting. She did not report any recent trauma. Her lab work is all unremarkable, and her CT abdomen and pelvis showing no acute findings. Due to the reproducibility of this pain and lack of lab or imaging findings this patient is likely dealing with musculoskeletal back pain. Other potential etiology would be possible shingles preceding her rash however this is very unlikely given the patient's age. She is told to follow-up with her primary care provider for reevaluation in a few days if she continues to have pain, and to return the emergency department with any onset of other new concerning symptoms. Patient endorses understanding and agrees to this plan at this time. Symptoms have been stable throughout ED course. Chart reviewed Labs 10/21/25 19:30 10/21/25 19:30 Radiology Impressions Abdomen/Pelvis CT 10/21/25 21:55 IMPRESSION: 1. Circumferential bladder wall thickening, which can be due to underdistention, however cystitis may have similar appearance. 2. Status post cholecystectomy. 3. No hydronephrosis or obstructing calculi bilaterally. Laboratory Results WBC 6.41 10^3/uL (3.29-11.43) 10/21/25 19: RBC 4.06 10^6/uL (3.85-5.65) 10/21/25 19:30 Hgb 12.30 g/dL (11.27-16.99) 10/21/25 19:30 Hct 37.7 % (36-47) 10/21/25 19: MCV 92.9 fl (85-98) 10/21/25 19: MCH 30.3 pg (27-33) 10/21/25 19: MCHC 32.6 g/dL (30-55) 10/21/25 19: RDW 13.0 % (12.1-15.1) 10/21/25 19: Plt Count 274 10^3/cmm (157-399) 10/21/25 19:30 MPV 9.6 fL (7.4-10.4) 10/21/25 19: Neut % (Auto) 47.4 % 10/21/25 19: Lymph % (Auto) 41.3 % 10/21/25 19:30 [place] % (Auto) 8.9 % 10/21/25 19: Eos % (Auto) 1.7 % 10/21/25 19: Baso % (Auto) 0.5 % 10/21/25 19: Neut # (Auto) 3.04 10^3/uL (1.8-7.7) 10/21/25 19: Lymph # (Auto) 2.7 10^3/uL (0.8-4.8) 10/21/25 19:30 [place] # (Auto) 0.6 10^3/uL (0.2-0.9) 10/21/25 19:30 Eos # (Auto) 0.1 10^3/uL (0.0-0.8) 10/21/25 19: Baso # (Auto) 0.0 10^3/uL (0.0-0.1) 10/21/25 19: Nucleated RBC % (auto) 0 % 10/21/25 19: Nucleated RBCs # 0.0 /100WBC 10/21/25 19:30 Sodium 137 mmol/L (136-145) 10/21/25 19: Potassium 3.7 mmol/L (3.5-5.1) 10/21/25 19: Chloride 100 mmol/L (98-107) 10/21/25 19: Carbon Dioxide 23 mmol/L (22-29) 10/21/25 19: Anion Gap 17.7 (5-19) 10/21/25 19: BUN 13 mg/dL (6-20) 10/21/25 19: Creatinine 0.8 mg/dL (0.5-0.9) 10/21/25 19: GFR Calculation 85.4 mL/min (90-130) L 10/21/25 19: Glucose 99 mg/dL (65-115) 10/21/25: Calculated Osmolality 284 mOsm/kg (285-295) L 10/21/25 19: Calcium 9.1 mg/dL (8.5-10.5) 10/21/25: Total Bilirubin 0.4 mg/dL (0.15-1.2) 10/21/25 19: AST 23 U/L (0-32) 10/21/25 19: ALT 16 U/L (0-33) 10/21/25 19: Alkaline Phosphatase 110 U/L (35-105) H 10/21/25 19: Total Protein 7.9 g/dL (6.6-8.7) 10/21/25 19: Albumin 4.6 g/dL (3.5-5.2) 10/21/25 19: Globulin 3.3 g/dL (1.3-4.6) 10/21/25 19: Urine Color [place] (Yellow) A 10/21/25 19: Urine Appearance Cloudy (CLEAR) A 10/21/25: Urine pH 5.5 (5-7) 10/21/25: Ur Specific [place] 1.020 (1.005-1.030) 12/27/25 19:28 Urine Protein Trace (Negative) A 10/21/25 19:28 Urine Glucose (UA) Negative (Normal) 10/21/25 19: Urine Ketones Trace (Negative) 10/21/25 19: Urine Blood 3+ (Negative) A 10/21/25 19:28 Urine Nitrate Negative (Negative) 10/21/25 19:28 Urine Bilirubin Negative (Negative) 10/21/25 19: Urine Urobilinogen 1.0 mg/dL (Negative) 10/21/25 19:28 Ur Leukocyte Esterase Trace (Negative) A 10/21/25 19:28 Urine RBC >100 /hpf (0-2) H 10/21/25 19:28 Urine WBC 0-5 /hpf (0-5) 10/21/25 19: Ur Squamous Epith Cells 0-5 /hpf (0-5) 10/21/25 19: Amorphous Sediment Not Reportable 10/21/25 19: Urine Bacteria None seen /hpf (NONE) 10/21/25 19: Hyaline Casts 0-4 /lpf H 10/21/25 19:28 Discharge Plan Discharge Patient Disposition: Home Clinical Impression: Musculoskeletal back pain Condition: Stable Prescriptions: No Action amoxicillin 875 mg tablet 875 mg PO BID 10 Days Qty: 20 0RF Discharge Orders: Discharge ED (Routine); Ordered 10/21/25 Ordered By: Volodymyr Ray Referrals: Barron Germain MD [Primary Care Provider, [facility]] Patient Instructions: Patient Portal & Daniela Instructions Activity Restrictions/Additional Instructions: Discharge Instructions: Musculoskeletal Back Pain Your Diagnosis You were evaluated in the emergency department for back pain. After a thorough evaluation including CT scan and laboratory tests, we have determined that you have musculoskeletal back pain. Your kidney stone was ruled out, and all your tests were reassuring. Your vital signs have been stable throughout your visit. What to Expect The good news is that most people with musculoskeletal back pain improve significantly within the first month, regardless of treatment. You should expect gradual improvement over the coming weeks. Home Care Instructions Activity: - Stay active and continue your normal daily activities as much as you can tolerate - Avoid prolonged bed rest, as this can actually slow your recovery - Gradually increase your activity level as your pain improves Pain Management: Non-medication options (try these first): - Apply heat to your back for 20 minutes several times daily using a heating pad or warm compress - Consider massage therapy if available and affordable - Gentle stretching as tolerated Medication options: - Take yclm-[id number]-[id number] anti-inflammatory medications (such as ibuprofen or naproxen) as directed on the package, unless you have been told to avoid these medications - You may take acetaminophen (Tylenol) in addition to anti-inflammatory medications if needed for additional pain relief - Take medications with food to reduce stomach upset When to Seek Immediate Medical Attention Return to the emergency department or call 911 if you develop any of the following: - New loss of bladder or bowel control - Numbness in the groin or rectal area (saddle anesthesia) - New or worsening weakness in your legs - Fever (temperature above 100.4?F or 38?C) - Severe pain that is not controlled with medication - Unexplained weight loss - Pain that spreads down both legs Follow-Up Care - Schedule an appointment with your primary care doctor within 1-2 weeks - If your pain does not improve after one month, contact your doctor for further evaluation - Keep track of your symptoms and what helps or worsens your pain Additional Information Smoking can worsen back pain and slow recovery. If you smoke, consider talking to your doctor about smoking cessation resources. Print Language: Amharic Coding Level of Care Code ED Color Shop Helper for Elli Perez
--- NOTE | 2025-10-21 21:55 | CTR_ITS ---
PROCEDURE INFORMATION: Exam: CT Abdomen And Pelvis Without Contrast Exam date and time: 10/21/2025 10:24 PM Age: 30 years old Clinical indication: Abdominal pain; Right; Prior surgery; Surgery date: 6+ months; Surgery type: Gb. Csection. Iud. C/O RT flank pain; Additional info: Right flank pain TECHNIQUE: Imaging protocol: Computed tomography of the abdomen and pelvis without contrast. Radiation optimization: All CT scans at this facility use at least one of these dose optimization techniques: automated exposure control; mA and/or kV adjustment per patient size (includes targeted exams where dose is matched to clinical indication); or iterative reconstruction. COMPARISON: No relevant prior studies available. RADIATION DOSE METRICS: Total DLP (mGy-cm): 351.96 FINDINGS: Lungs: Unremarkable. Liver: Normal. No mass. Gallbladder and biliary ducts: Gallbladder surgically absent. Pancreas: Normal. No ductal dilation. Spleen: Normal. No splenomegaly. Adrenal glands: Normal. No mass. Kidneys and ureters: Normal. No hydronephrosis. Stomach and bowel: Unremarkable. No obstruction. No mucosal thickening. Appendix: No evidence of appendicitis. Intraperitoneal space: Unremarkable. No free air. No significant fluid collection. Vasculature: Unremarkable. No abdominal aortic aneurysm. Lymph nodes: Unremarkable. No enlarged lymph nodes. Urinary bladder: Circumferential bladder wall thickening. Reproductive: Uterus is present and contains intrauterine device. Bones/joints: Unremarkable. No acute fracture. Soft tissues: Unremarkable. CT/CT kidney stone [id number] IMPRESSION: 1. Circumferential bladder wall thickening, which can be due to underdistention, however cystitis may have similar appearance. 2. Status post cholecystectomy. 3. No hydronephrosis or obstructing calculi bilaterally.
[2025-10-21 22:01] VITALS: BP 99/73; PULSE 91; O2SAT 99
== END 2025-10-21 23:24 | disposition home or self-care (01) ==
PROVIDERS: Family Medicine; Emergency Provider Physician Assistant; PCP Family Medicine
DX: M54.89 Other dorsalgia (principal)
CPT/HCPCS: 36415; 74176; 80053; 81001; 85025; 87077; 87086; 87186; 99284